=== PATIENT | female | born 1965 | race Caucasian/White ===

== ENCOUNTER → 2023-11-06 14:42 | Outpatient (CLI) | payer OTHER, SELFPAY ==
--- NOTE | 2023-11-06 14:53 | EKG_ITS ---
[id number] [address] Test Date: 2023-11-06 Pat Name: Flores Reyes Department: [facility] Room: Gender: Female Outpatient Psychiatrist: WENCESLAO : 1965 Requested By: Order Number: [id number] Reading MD: Shaheen Ann MD Measurements Intervals [place] Rate: 58 P: 38 NE: 128 QRS: 31 QRSD: 98 T: 33 QT: 446 QTc: 437 Interpretive Statements Sinus bradycardia Nonspecific ST abnormality Electronically Signed On 11-06-2023 17:02:46 PDT by Shaheen Ann MD
[2023-11-06 16:24] LABS: Add Manual Diff / Slide Review NO; Basophils Absolute Auto 100 /uL (0-100); Basophils Percent Auto 0.9 % (0-2); Eosinophils Absolute Auto 100 /uL (0-450); Eosinophils Percent Auto 1.9 % (2-4); Hematocrit 40.4 % (36-46); Hemoglobin 13.9 g/dL (12.0-16.0); Lymphocytes Absolute Auto 2300 /uL (1100-4500); Lymphocytes Percent Auto 33.7 % (25-40); Mean Corpuscular HGB Conc 34.3 % (30-36); Mean Corpuscular Hemoglobin 31.1 PG (26-34); Mean Corpuscular Volume 90.5 fL (80-100); Monocytes Absolute Auto 400 /uL (0-900); Monocytes Percent Auto 5.7 % (3-14); Neutrophils Absolute Auto 3900 /uL (1500-7000); Neutrophils Percent Auto 57.8 % (50-75); Platelet Count 325 X10^3/uL (150-400); Red Blood Cell Count 4.46 X10^6/uL (4.0-5.2); Red Cell Distribution Width 12.6 % (11.6-14.8); White Blood Cell Count 6.8 X10^3/uL (4.5-11.0)
[2023-11-06 16:41] LABS: Albumin 4.2 g/dL (3.5-5.0); Blood Urea Nitrogen 11 mg/dL (7-17); Calcium 9.3 mg/dL (8.4-10.2); Carbon Dioxide 28 mmol/L (22-32); Chloride 100 mmol/L (98-107); Estimated Glomerular Filt Rate > 60 mL/min (>60); Glucose 96 mg/dL (70-100); HEMOLYSIS < 15 (0-50); Potassium 3.4 mmol/L (3.4-5.1); Sodium 136 mmol/L (137-145)
[2023-11-06 16:48] LABS: Prealbumin 27.9 mg/dL (17.6-36.0)
[2023-11-06 16:52] LABS: Hemoglobin A1C% w Est Avg Glu 5.1 % (4.0-6.0)
== END ==
LOC: RESP 14:51
PROVIDERS: PCP Family Medicine; Referring Provider Orthopaedic Surgery Adult Reconstructive Orthopaedic Surgery; Visit Provider Orthopaedic Surgery Adult Reconstructive Orthopaedic Surgery
DX: Z01.818 Encounter for other preprocedural examination (principal); R77.0 Abnormality of albumin; E55.9 Vitamin D deficiency, unspecified; Z01.812 Encounter for preprocedural laboratory examination; R73.9 Hyperglycemia, unspecified
CPT/HCPCS: 36415; 80048; 82040; 82306; 83036; 84134; 85025; 93005

== ENCOUNTER 2023-12-19 12:08 | Day surgery (SDC) | payer OTHER, SELFPAY ==
[2023-12-18 13:57] VITALS: BMI 22.7
[2023-12-19] VITALS (11 sets, daily range): BP systolic 89–149; BP diastolic 38–90; PULSE 60–79; RESP 12–18; TEMP 36.2–37.1; O2SAT 95–100; BMI 22.8
--- NOTE | 2023-12-19 06:00 | DI.RAD.S_ITS ---
PROCEDURE: XR HIP W PEL IF DONE RT 2V INDICATIONS: lizbeth TECHNIQUE: Spot fluoroscopic intraoperative images of the pelvis and right hip. COMPARISON: [facility] [place], CR, XR PELVIS WITH LATERAL HIP RIGHT, 10/26/2023, 11:53. FINDINGS: Fluoroscopic intraoperative images demonstrate changes related to right total hip arthroplasty with hardware components in expected positions. Left hip arthroplasty is partially imaged. IMPRESSION: Expected intraoperative appearance of a right hip arthroplasty. Approved by: Anhtony Sanchez M.D. on 12/19/2023 at 17:31
[2023-12-19] MEDS: LACTATED RINGERS 1,000 ML 42 ML IV (12:27)
[2023-12-19] MEDS: CELECOXIB 200 MG CAPSULE 400 MG PO (12:29)
[2023-12-19] MEDS: ACETAMINOPHEN 325 MG TABLET 975 MG PO (12:29)
--- NOTE | 2023-12-19 13:29 | PM.PREOP ---
Pre-operative Note Interval Note History & Physical reviewed/Exam performed by Physician: Yes Changes to H&P: No
--- NOTE | 2023-12-19 15:02 | SUR.OPER ---
Supine on padded [place] table with bilateral legs secured in padded positioning boots and suspended in positioning spars, operative leg in traction per surgeon. Head on one pillow. Arms secured on padded armboard <90 degrees abduction. Padded perineal post in place per surgeon.
[2023-12-19] MEDS: CEFAZOLIN 2 GM/100 ML PREMIX 100 ML IV ×2 (16:01→23:52)
[2023-12-19] MEDS: ROPIVACAINE/EPI/CLONIDINE/KET 50 ML SYRINGE INJ (16:28)
[2023-12-19] MEDS: TRANEXAMIC ACID 1,000 MG VIAL 2000 MG INJ ×2 (16:28→17:20)
--- NOTE | 2023-12-19 17:30 | P.OP_ITS ---
Operative Date/Time/Diagnoses Date of procedure: 12/19/23 Pre-op diagnosis: Right hip osteoarthritis Post-op diagnosis: same Procedure & Clinicians Procedure: Right total hip arthroplasty Same procedure as scheduled: Yes Surgeon: Blayne Gann Environmental Management Specialist: Rosalia Quiñonez Anesthesia Type: General and Local Operative Notes Estimated Blood Loss (mL): 400 Procedure in detail: Right Uncemented Direct Anterior Depuy Total Hip Arthroplasty: Implants: * [place] Gription size 54 cup? * Actis femoral stem size 7 standard offset? * 36 mm +5 ceramic femoral head? Procedure Summary: This 58-year-old female patient had previously undergone a left total hip arthroplasty performed by 1 of the surgeons in [place]. During today's procedure I used similar sized implants, using a 54 cup which was the same as the previous side, a 7 standard offset stem which is 1 size larger than the previous side, and a +5 head which is also 1 size larger than the previous side. I used the +5 head because there was instability when externally rotating past 100? with a +1.5 head. There was stability past 115? with a +5 head Procedure in Detail: This patient was seen preoperatively and evaluated for hip pain which was refractory to numerous nonoperative treatment modalities. Their hip pain correlated with radiographic changes demonstrating significant degeneration in the hip joint. The risks and benefits of continued nonoperative management versus operative management were discussed at length and all of the patient?s questions were answered. Additional educational materials providing further details beyond our discussion in clinic were provided via a publicly available patient education video which included the incidence of medical complications associated with total hip arthroplasty, reasons for revision following total hip arthroplasty, and patient satisfaction rates following total hip arthroplasty. That video can be accessed at [email or web address] . With this understanding of the risks inherent to the procedure, the patient elected to move forward with operative management. Following preoperative optimization, the patient was scheduled for surgery. The patient was met in the preoperative holding area the day of the procedure and all questions were answered. The patient?s nares were swabbed with betadine in order to decolonize them from MRSA. Informed consent was signed and the right limb was marked with indelible ink.? The patient was brought back to the operating room where anesthesia was induced. The patient was transferred to the [place] table and all bony prominences were padded. The operative site was prepped and draped in the usual sterile fashion. Prior to incision, tranexamic acid and cefazolin were administered. Operative templating images were displayed demonstrating the anticipated implant sizes and correct operative extremity. A timeout procedure was performed verifying the patient?s identity, medical comorbidities, allergies, relevant medications, anesthesia type and the surgical plan. All present were in agreement. The assistance of a physician certified nursing assistant instructor was required for positioning, room setup, soft tissue retraction and wound closure. Without this assistance, the procedure would have been significantly more challenging and time consuming.?? A direct anterior approach to the hip was utilized. This was performed with a longitudinal incision through a Heuter interval. The incision was planned 2 cm distal and 2 cm lateral to the ASIS extending towards the lateral patella, in line with the muscle body of the TFL. Following incision, the subcutaneous tissue was dissected while taking care to avoid injury to the lateral femoral cutaneous nerve. The fascia overlying the TFL was identified by dissecting off the overlying fat and identifying perforating vessels to the TFL. The TFL fascia was incised and dissected away from the medial border of the TFL. A cobra retractor was placed over the superior femoral neck between the abductors and the hip capsule and used to reflect the TFL laterally. A [place] self-retainer was then placed in the distal aspect of the wound between the TFL and the rectus femoris. This was tensioned to open up the direct anterior interval and the lateral circumflex vessels were identified and coagulated using electrocautery. The floor of the TFL fascia was incised, exposing the pericapsular fat overlying the hip capsule. A second cobra retractor was placed on the inferior femoral neck. A double-bent soft tissue retractor was placed on the anterior wall of the acetabulum and used to tension the reflected head of rectus femoris, which was then released in order to limit soft tissue tension. A capsulotomy was made in the midline of the anterior hip capsule in line with the femoral neck ending at the vastus tubercle. The double-bent retractor was removed in order to limit the amount of time that a soft tissue retractor remained on the anterior wall and protect the femoral nerve. Tag stitches were placed in the superior and inferior leaflets of the hip capsule. An Bobby soft tissue retractor was introduced over the tag stitches and tensioned in the interval between the rectus femoris and the TFL in order to retract and protect those muscles. The cobra retractors were replaced intracapsularly, with one over the superior neck in the pocket created by the base of the greater trochanter and the other on the femoral head. The capsulotomy was extended laterally to the base of the greater trochanter and medially to the lesser trochanter. This required externally rotating the hip. Once the lesser trochanter had been identified, a neck cut was planned according to measurements from preoperative templating. A ruler was cut at the length measured between the superior aspect of the lesser trochanter and the collar of the prosthesis. This line was extended towards the inferior aspect of the lateral cobra retractor to plan a cut which would leave minimal residual femoral neck laterally. The neck was cut at 60 degrees of external rotation along that line. A second cut was performed to remove a large napkin ring and facilitate head extraction. The napkin ring cut and femoral head were removed.?? A broad anterior wall retractor was placed between the labrum and the anterior capsule so that the anterior capsule would prevent capturing and pinching the femoral nerve anteriorly. An additional retractor was placed on the posterior wall. External rotation and traction were applied through the [place] table so that the cut surface of the femoral neck would not restrict access to the acetabulum. The labrum was excised sharply and the pulvinar was excised with electrocautery to limit bleeding from branches of the obturator artery. Acetabular reamers were selected based on preoperative templating and measurements of the excised femoral head. These were introduced into the acetabulum. Fluoroscopy was utilized to replicate a standing AP pelvis radiograph by centering over the pelvis, rotating until there was appropriate symmetry between the obturator foramen, and introducing caudal tilt to match the position of the pubic symphysis relative to the sacrococcygeal junction according to the patient?s anatomy. Fluoroscopy was utilized to ensure appropriate reaming depth. Once sati sfied with the reaming depth corresponding to the preoperative template and the pinch fit between the columns, an appropriate sized acetabular cup was selected which would provide 1 mm of press-fit. This cup was introduced and manipulated until appropriate abduction and anteversion angles were obtained with careful attention to appropriate abduction and anteversion angles as evaluated by the position of the cup relative to the anterior and posterior anderson of the acetabulum and the AP fluoroscopy which recreated the patient?s standing radiograph. The cup was impacted into place. Peripheral osteophytes were removed. The acetabular liner was then placed with care to ensure locking of the locking mechanism.? Attention was then turned to the femur. All retractors were removed, traction was released, a retractor was placed in the interval between the hip capsule and the gluteus minimus, and the hip was externally rotated to 90 degrees. Traction was applied through the [place] table to tension the lateral capsule and this was released using electrocautery. Traction was released and a [place] hook was placed posteriorly around the proximal femur at the level of the vastus ridge. The table height was lowered in order to restrict the tension on the anterior structures during hip hyperextension to limit the risk of femoral nerve palsy. With traction off and the hip at 90 degrees of external rotation, the hip was hyperextended and adducted while manually elevating the femur away from the acetabulum with the [place] hook to ensure it would not be caught behind the greater trochanter. An asymmetric retractor was placed over the calcar and a broad double-pronged retractor was placed over the greater trochanter. The tag stitch capturing the lateral leaflet of the capsule was moved to the medial side, leaving the conjoined and piriformis tendons isolated in the face of the greater trochanter. The hip was externally rotated and elevated. A release of the conjoined tendon was not necessary in order to obtain adequate exposure for broaching. The canal was opened with an opening broach and a rasp was used to remove cancellous bone. A rongeur was used to remove the residual lateral bone at the base of the greater trochanter to avoid placing the stem in varus. The femur was then broached to the appropriate sized stem yielding good rotational fit and fill of the canal as well as appropriate version of the stem trial. Neck and head trials were placed, all retractors were removed and the hip was returned to neutral abduction and extension. I then reduced the hip. Initial trialing was performed with a size 7 broach, a standard offset neck and a +1.5 head. I initially manually externally rotated the hip and found that it dislocated around 90? so I upsized to a +5 head. At that point in time it was stable to 115?.. I then locked the hip in 45 degrees of external rotation and dropped it to the floor with traction off which demonstrated no instability. An AP pelvis fluoroscopic image matching the preoperative standing radiograph with both lesser trochanters visible and both hips in 40 degrees of external rotation demonstrated appropriate leg lengths and offset. AP and lateral hip fluoroscopic images were obtained to evaluate the broach size which demonstrated good canal fill. The hip was dislocated and I returned to the broaching position. Based on my evaluation during initial trialing I planned to place these definitive implants. The definitive stem was placed and the trunnion was cleaned and dried. I placed a ceramic head onto the trunnion and impacted it into place on the Holman taper.?? All retractors were removed and the hip was reduced. A dilute mixture of betadine and peroxide was used to bathe the soft tissues during final fluoroscopic assessment. Appropriate component positioning was confirmed on an AP pelvis radiograph with the operative and nonoperative legs in 40 degrees of external rotation, evaluating leg length and offset. Appropriate stem fill was evaluated on AP and lateral hip radiographs. No fractures were identified on these radiographs. There was no hip instability with 115? of external rotation as well as a 45 degree drop test. The hip was copiously irrigated with pulse lavage. The capsule was closed with absorbable interrupted suture. The TFL fascia was closed with barbed suture while carefully protecting the lateral femoral cutaneous nerve from entrapment. A mixture of Ropivacaine, Epinephrine, Clonidine and Toradol was infiltrated throughout the soft tissues. The skin was closed with 2-0 and 3-0 sutures. Surgical glue was applied and a soft dressing was placed.??The sponge, instrument and needle counts were reported as being correct at the end of the case.??No obvious complications occurred. The patient was transferred from the [facility] back to a stretcher. The patient emerged from anesthesia without difficulty and was taken to the PACU in a stable condition.? Plan for aftercare: * Anterior hip precautions * Weightbearing as tolerated * Aspirin 81 twice per day for DVT prophylaxis * Anticipate discharge home tomorrow * Change into normal clothes upon arrival on the hospital floor * Mobilize in the halls as much as is logistically possible. If physical therapy is unavailable for mobilization, then patient should mobilize with nursing staff * Multimodal pain regimen with no IV opioids ordered * Apply ice machine to operative hip. Ensure that sufficient ice is in the chamber for the pad to remain cold * Follow up at [facility] in 2 weeks * Detailed postoperative instructions available at [email or web address]
[2023-12-19] MEDS: ONDANSETRON 4 MG/2 ML INJ IV ×2 (17:54→18:07)
--- NOTE | 2023-12-19 18:00 | DI.RAD.S_ITS ---
PROCEDURE: XR HIP W PEL IF DONE RT 2V INDICATIONS: S TECHNIQUE: AP pelvis and lateral view of the hip acquired. COMPARISON: [facility] [place], CR, XR PELVIS WITH LATERAL HIP RIGHT, 10/26/2023, 11:53. [facility], CR, XR HIP W PEL IF DONE RT 2V, 12/19/2023, 16:43. FINDINGS: Bones: Patient is status post right hip arthroplasty, with hardware components in expected positions. The hip joint appears congruent. The visualized bony structures appear intact. Stable appearance of the left hip arthroplasty. Soft tissues: Overlying postoperative changes are noted. No suspicious soft tissue densities. IMPRESSION: Expected post-operative appearance of a right hip arthroplasty. Approved by: Anthony Sanchez M.D. on 12/19/2023 at 18:38
[2023-12-19] MEDS: hydrOXYzine 50 MG/ML INJ 25 MG IM (18:07)
[2023-12-19] MEDS: METOCLOPRAMIDE 10 MG/2 ML INJ IV (18:08)
[2023-12-19] MEDS: fentaNYL 100 MCG/2 ML INJ IV ×2 (18:08→18:15)
[2023-12-19] MEDS: OXYCODONE IR 5 MG TABLET PO ×2 (18:23→21:45)
--- NOTE | 2023-12-19 18:45 | PC.NURSE ---
Patient brought up from PACU to room 217, oriented to room and call light. Patient groggy but arousable and answering questions. States her right buttocks and hip feels weird and crampy. No transfer orders noted upon arrival, brake lining driller reaching out to Dr. Gann to finalize orders. VSS, 95% on RA. Call light placed within reach, bedalarm activated for safety.
[2023-12-19] MEDS: LACTATED RINGERS 1,000 ML 100 ML IV (19:36)
[2023-12-19] MEDS: ASPIRIN EC 81 MG TABLET PO (21:37)
[2023-12-19] MEDS: GABAPENTIN 300 MG CAPSULE 900 MG PO (21:37)
[2023-12-19] MEDS: DOCUSATE 100 MG CAPSULE PO (21:37)
[2023-12-19] MEDS: ACETAMINOPHEN 325 MG TABLET 650 MG PO (21:39)
[2023-12-20 05:19] VITALS: BP 128/74; PULSE 75; RESP 18; TEMP 37; O2SAT 95
[2023-12-20 05:31] LABS: Hematocrit 28.8 % (36-46); Hemoglobin 9.7 g/dL (12.0-16.0)
--- NOTE | 2023-12-20 06:46 | P.DS_ITS ---
History of Present Illness History of Present Illness Date Patient Seen: 12/20/23 Time Patient Seen: 06:46 Chief complaint: OPB Narrative: Operative Date/Time/Diagnoses Date of procedure: 12/19/23 Pre-op diagnosis: Right hip osteoarthritis Post-op diagnosis: same Procedure & Clinicians Procedure: Right total hip arthroplasty Same procedure as scheduled: Yes Surgeon: Blayne Gann Oenologist: Rosalia Quiñonez Anesthesia Type: General and Local Operative Notes Estimated Blood Loss (mL): 400 Procedure in detail: Right Uncemented Direct Anterior Depuy Total Hip Arthroplasty: Implants: * [place] Gription size 54 cup? * Actis femoral stem size 7 standard offset? * 36 mm +5 ceramic femoral head? Discharge Providers Provider Discharge Date: 12/20/23 Primary care physician: Haseeb Yip MD Consults: 12/19/23 06:00 Consult to Anesthesiology Routine Comment: Consulting Provider: Anesthesiologist Reason for consultation: Regional block for post operative pain control 12/19/23 19:07 Consult to Discharge Planning Routine Comment: Consult to Occupational Therapy Evaluate & Treat Comment: Physician Instructions: Evaluate and treat Consult to Physical Therapy Evaluate & Treat Comment: Physician Instructions: post op TEZ protocol Discharge provider: Rosalia Quiñonez PA-C Summary Hospital Course Discharge Diagnosis: Right hip osteoarthritis, s/p right total hip arthroplasty Hospital Course: Ms Reyes's hospital course was unremarkable. ON the morning of POD# 1, she was feeling well and wanted to go home. She was eating and voiding without difficulty and her pain was well-controlled with oral medication. She had not been OOB yet. Exam Vital Signs (past 8 hours): - 12/20/23 05:19 Temperature 98.6 F Pulse Rate 75 Respiratory Rate 18 Blood Pressure 128/74 Pulse Oximetry 95 Oxygen Flow Rate 0 Oxygen Delivery Method Room Air Oxygen Flow Rate 0 Narrative Exam Narrative: 4/5 hip flexors, quadriceps, hamstrings; 5/5 PF, DF, EHL on right. Sensation to light touch intact throughout RLE. Calf soft and compressible. Aquacel dressing CDI. Objective Labs 12/20/23 04:29 Labs: Laboratory Results - last 24 hr 12/20/23 04:29 Hgb 9.7 L Hct 28.8 L PFSH Medical History (Updated 12/18/23 @ 13:55 by Franchesca Morales RN) Depression Anemia ADD (attention deficit disorder) Arthritis Osteoporosis Headache, migraine DJD (degenerative joint disease) Surgical History (Updated 12/18/23 @ 13:55 by Franchesca Morales RN) Delivery by section (2003) H/O nasal septoplasty (10/28/17) Status post Mohs surgery History of hysteroscopy (03/30/17) History of total left hip replacement (2020) History of appendectomy Social History household members: children Smoking Status: Former smoker alcohol intake: current Discharge Assessment & Plan Assessment and Plan Assessment: Right hip osteoarthritis, s/p right total hip arthroplasty Plan of Treatment: Discharge home after PT, multimodal pain control, ASA 81mg BID for VTE prophylaxis, f/u in office as scheduled. Discharge Plan Discharge Plan Patient Disposition: Home Provider Discharge Comment: Pt given rxs for postop meds from office. Discharge orders & Medications Discharge Orders: Discharge (Order); Ordered 12/20/23 Ordered By: Rosalia Quiñonez Prescriptions: Continued gabapentin 300 mg capsule 900 mg PO ONCE PM dextroamphetamine-amphetamine 5 mg tablet 1 tab PO DAILY PRN (Reason: ADD) dextroamphetamine-amphetamine 5 mg capsule,extended release 24hr 1 cap PO QAM celecoxib 200 mg capsule 200 mg PO DAILY aspirin 81 mg tablet,delayed release (DR/EC) 81 mg PO BID oxycodone 5 mg tablet 5 mg PO Q4-6H PRN (Reason: moderate pain) Discontinued meloxicam 15 mg tablet 15 mg PO DAILY Follow up/Referrals: Haseeb Yip MD [Primary Care Provider] - Blayne Gann MD [Physician] - 01/01/24 9:30 am (Follow up w/ Akiko Heller PA-C, at [facility].) Diet/Activity/Treatments Diet: Diet as Tolerated Activity: Weightbearing as tolerated. Anterior hip precautions. Skin/Wound/Dressing Care Report to your healthcare provider any signs of infection, such as:: chills, fever, night sweats, unusual drainage and unusual redness Dressing: May shower. Keep dressing in place until follow up in office. No bathing or otherwise soaking incision. Call the office if the dressing become saturated inside. Visit Report/Discharge Packet Instructions: DI for Hip Replacement, DI for Prescription Opioid Use Stand Alone Forms: Patient Portal/API, Surgery Discharge Discharge Data Primary Care Provider: Haseeb Yip Attending Provider: Blayne Gann
[2023-12-20 08:14] VITALS: BP 97/74; PULSE 65; RESP 15; TEMP 36.6; O2SAT 96
[2023-12-20] MEDS: ASPIRIN EC 81 MG TABLET PO ×2 (09:01→20:51)
[2023-12-20] MEDS: ACETAMINOPHEN 325 MG TABLET 650 MG PO ×3 (09:01→21:00)
[2023-12-20] MEDS: DOCUSATE 100 MG CAPSULE PO ×2 (09:01→20:51)
[2023-12-20] MEDS: CEFAZOLIN 2 GM/100 ML PREMIX 100 ML IV (09:01)
[2023-12-20] MEDS: CELECOXIB 200 MG CAPSULE PO (09:01)
[2023-12-20] MEDS: OXYCODONE IR 5 MG TABLET PO (09:02)
[2023-12-20 09:31] VITALS: O2SAT 100
--- NOTE | 2023-12-20 10:10 | OT.IP.EVAL ---
Current Diagnoses Unilateral primary osteoarthritis, right hip (12/19/23) Surgery Performed Operation Date: 12/19/23 13:45 Actual Procedures p Total Hip Arthroplasty/Anterior Approach(Right) - Blayne Gann MD Past Medical History (Last Updated 12/18/23 @ 13:55 by Franchesca Morales, NESSA) ADD (attention deficit disorder) Anemia Arthritis Depression DJD (degenerative joint disease) Headache, migraine Osteoporosis Surgical History (Last Updated 12/18/23 @ 13:55 by Franchesca Morales RN) Delivery by section (2003) H/O nasal septoplasty (10/28/17) History of appendectomy History of hysteroscopy (03/30/17) History of total left hip replacement (2020) Status post Mohs surgery Occupational Therapy Inpatient Evaluation/Re-Eval M1 PT/OT-IP Prior Functional Status Start: 12/20/23 10:15 Freq: NEEDED Status: Active Protocol: Document 12/20/23 10:15 [facility] (Rec: 12/20/23 10:27 [facility] [id number]) Medical Review Prior Functional Status Communication I Mobility and Gait Pt states had pain all the time and used a SPC at times. Activities of Daily Living and IADL's Pt had pain with all ADL and IADL needs. Social History Household Members children Living Arrangements House Number of Floors (Floors) One Floor Number of Stairs To Enter/Railing? 2 steps with wide rails. Home Environment Walk in Shower Home Equipment Front Wheel Walker,Straight Cane,Raised Toilet Seat w/ Armrests,Shower Seat with Backrest,Hand Held Shower,Leg Concrete Finisher,Long Handled Sponge, Miniature Train Driver,Sock Aid,Grab Bars next to tub Additional Social History Comment Pt has tub only. Pt's son to stay and assist her. M2 OT-IP Current Condition Start: 12/20/23 10:15 Freq: Status: Active Protocol: Document 12/20/23 10:15 [facility] (Rec: 12/20/23 10:27 [facility] [id number]) Occupational Therapy Current Condition Current Condition Evaluation Date 12/20/23 Treatment Diagnosis S/P R TEZ Diagnosis Onset Date 12/19/23 Post Operative Precautions Anterior Hip Precautions No excessive Hip Extension,No excessive Hip External Rotation M3 OT- IP Subjective and Pain Start: 12/20/23 10:15 Freq: Status: Active Protocol: Document 12/20/23 10:15 [facility] (Rec: 12/20/23 10:27 [facility] [id number]) OT- Subjective Occupational Therapy Visit Type Type Initial Evaluation Visit Start Time 09:00 Visit Stop Time 10:10 Occupational Therapy Visit Comments Patient Comments Pt agreed to get up to use the BSC. Patient/Caregiver Goals To go home. OT Pain Assessment Pain When Pain Assessed At Rest Pain Present Pain Present Pain Reported Location Right Hip Intensity 7 Scale Used Numeric (0 - 10) M4 OT- IP ADL's Start: 12/20/23 10:15 Freq: Status: Active Protocol: Document 12/20/23 10:15 [facility] (Rec: 12/20/23 10:27 [facility] [id number]) OT ZUK-Yxdd-Ygpylxr General Evaluation Self-Feeding Ability Independent OT ADL-Grooming Comments OT Grooming Comments Not performed. OT ADL-Oral Care Comments Oral Care Comments Not performed. OT ADL-Dressing General Eval Lower Body Dressing Ability Moderate Assistance Areas Needing Assistance Underpants/Brief,Socks Comments OT Dressing Comments Pt able to practice use of workforce management manager for toileting needs. Educated pt not to do excessive movements for her anterior hip precautions. OT ADL-Toileting General Evaluation Toileting Ability Minimal Assistance Areas Needing Assistance Manage Clothing Comments OT Toileting Comments JESSENIA for brief management needs. OT ADL-Bathing Comments OT Bathing Comments Pt will need assist at home. Educated on bandage/dressing care for showering needs. M5 OT- IP IADL's Start: 12/20/23 10:15 Freq: Status: Active Protocol: Document 12/20/23 10:15 [facility] (Rec: 12/20/23 10:27 [facility] [id number]) OT-Instrumental Activities of Daily Living Home Safety Awareness Home Safety Comments Pt very tired and groggy at this time and that he son to be able to assist her at home. M6 OT- IP Functional Cognition Start: 12/20/23 10:15 Freq: Status: Active Protocol: Document 12/20/23 10:15 [facility] (Rec: 12/20/23 10:27 [facility] [id number]) Cognitive Factors Limiting Selfcare Function Cognitive Ability Level of Alertness Alert,Drowsy Patient Orientation Name,Age,Birthday,Month,Date, Year,Day of Week,Place, Situation Attention Span Ability Capable of Focused Attention, Capable of Sustained Attention Ability to Follow Commands Able to Follow One Step Commands Cognitive Comments Cognitive Assessment Comments Pt able to follow commands for ADL and mobility needs. Pt needing increased time to process and initiate movements as very groggy. OT- Vision and Hearing OT- Hearing Assessment OT- Hearing Assessment WFL OT- Vision Assessment Visual Acuity Glasses All The Time Visual Attentiveness WFL Occular Pursuits WFL M7 OT- IP Mobility and Balance Start: 12/20/23 10:15 Freq: Status: Active Protocol: Document 12/20/23 10:15 [facility] (Rec: 12/20/23 10:27 [facility] [id number]) OT- Bed Mobility Assessment Supine to Sit Supine to Sit Assist Moderate Assistance Sit to Supine Sit to Supine Assist Total Assistance OT-Transfer Assessment Sit to and From Stand Sit to and from Stand Minimal Assistance Transfers Transfer Ability Minimal Assistance Technique Transfer Destination Bed,Chair Transfer Technique Stand Step Pivot Devices Transfer Assistive Devices Gait Belt,Front Wheeled Walker Comments Mobility Comments MODA to assist with her RLE management needs to get to the edge of the bed. Pt JESSENIA to stand and vc to tighten her RLE. ONce on her feet CGA-JESSENIA for transfer with FWW to the BSC and then to the recliner. Pt drop in BP and having to be hoyered back to bed. BP supine 98/50 sitting 100/55, 112/53, and after use of BSC dropped to 86/44, while in the recliner with legs up 93/50 and eventually after time passed drops to 82/41 and having to call in nursing and use of jaylen back to bed. Left pt with nursing. OT- Balance Assessment Sitting Balance and Reactions Static Sitting Balance Ability Good Dynamic Sitting Balance Ability Good Standing Balance and Reactions Static Standing Balance Ability Fair Dynamic Standing Balance Ability Fair M8 OT- IP Objective Assessments Start: 12/20/23 10:15 Freq: Status: Active Protocol: Document 12/20/23 10:15 [facility] (Rec: 12/20/23 10:27 [facility] [id number]) OT Gross Range of Motion Upper Extremity Range of Motion Assessment Within Functional Limits OT Strength Upper Extremity Strength Assessment Within Functional Limits M9 OT- IP Assessment and Plan Start: 12/20/23 10:15 Freq: Status: Active Protocol: Document 12/20/23 10:15 [facility] (Rec: 12/20/23 10:27 [facility] [id number]) OT Summary Assessment and Plan Potential Rehabilitation Potential Excellent Analytic Complexity at Evaluation Low Summary OT Impairments Pain,Strength,Balance, Functional Mobility,Dressing, Toileting,Bathing,Toilet Transfers,Shower Transfers, Activity Tolerance Progress Towards Goals Slow Progress due to Pain,Slow Progress due to Medical Issues Assessment Summary Pt low complexity and main barriers are pain, drop in BP and woozy. Pt able to move with one person assist but limited due to drop in BP. Pt to go home with her son to assist and attend outpt PT when medically stable. Goals Self-Feeding Goal Independent Grooming Goal Independent Dressing Goal Independent,Miniature Train Driver,Sock Aid Toileting Goal Independent Bathing Goal Standby Assistance Toilet Transfer Goal Independent Shower Transfer Goal Contact Guard Assistance Days to Meet Goals 7 Frequency of Treatment Other frequency 5x/week Treatment Plan OT Treatment Plan ADL Training,Functional Mobility,Patient/Family Education,Discharge Planning Other Treatment Recommendations and Next standing ADL's Treatment Focus Discharge Recommendations OT Discharge Recommendations Home with Assistance, Outpatient PT Transportation Needs at Discharge Private Vehicle
--- NOTE | 2023-12-20 11:35 | CM.DANOTE ---
Initial DCP Assessment Visit Note Reviewed EMR and team rounds for status updates. Met with pt at bedside to introduce self and role, pt was found to be resting quietly, alert/oriented, but tearful. She had just had a syncopal episode while working with OT, but was feeling better after laying down. Pt lives modified independently with the use of a cane in her own home with her son in [place]. She has a d/c order, and will plan to d/c home later today, her son will transport her. Plan is OP PT after she meets with Ortho for her postoperative f/u appt. She declines any needs at this time from CM. Payor: Linda REEDER Attending: Dr. Gann Pt is a 58 year-old F post-op day 1 from a R-hip total arthroplasty. She has a hx of worsening R-hip pain that consumes her entire hip area, has difficulty walking due to the pain, and finds that she is unable to complete her ADL's without significant effort. Conservative measures tried have included PT, massage, stretching, tylenol, and had an injection in July which only lasted about a week. DCP will continue to monitor for any further evolving needs prior to her d/c. 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 No Advance Directives on File No History Provided By Patient,Medical Record Has Patient been admitted in last 30 No days? Prior Living Arrangements House Household Members children Comment son Type of transporation used prior to Drives own vehicle admit Independent with ADL's No: modified independent with a cane Is patient alert and oriented? Yes Caregiver for Another No Community Services used prior to Physical Therapy admission: DME Already Rented / Owned Elevated Toilet Seat,FWW / Walker,Cane Patient/Family Preference OP PT Therapy Barriers to Discharge No Discharge Plan Home Transportation Arrangement son Referrals Initiated None needed Whiteboard Updated in Patient Room with Yes name and ext. # of Sand Screener Operator Review Status In Process Please Provide Date Initial DC 12/20/23 Assessment Was Performed Pre-Anesthesia Assessment Start: 12/18/23 13:56 Freq: Status: Active Protocol: Document 12/18/23 13:57 LB (Rec: 12/18/23 14:26 LB [id number]) Pre-Anesthesia Assessment PAC Comment 12/18/23 Phone assessment. Patient Information Reviewed Via Phone Assessment Assessment Completed With Patient Diagnostic Results BMP/CMP,CBC,EKG Comment 11/06/23 at . Primary Care Provider Marion Bruce Medical Clearance Received Yes Seen Specialist in Last 12 Months Yes Specialist Seen Orthopedist Primary Language Fijian Preferred Language Fijian Trim Operator Required No Height 170.18 cm Weight 65.771 kg Body Mass Index (BMI) 22.7 Hearing Ability Normal Visual Assist Glasses Dentition Type Teeth, Natural Present Barriers to Learning None Other Aids No Hx Anesthesia Reactions Yes: Slow to waken. Hx Malignant Hyperthermia No Hx Blood Transfusions No Anesthesia Review Requested No Organ Teacher No alcohol intake current alcohol intake frequency holidays/special occasions only Smoking Status Former smoker how long ago did patient quit smoking Quit 20 years ago. Substance Use Type does not use Pain Present Reassessed Comment Right hip. Musculoskeletal Symptoms Difficulty Walking,Muscle Weakness,Radiating Pain into Limb History of Falling (Recent or History of Yes ) Comment I'm getting clumsy with this pain Patient is completely paralyzed or No completely immobile Comment Will bring walker. Is patient on oxygen? 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 Devices Have you had any close contact with No someone diagnosed with COVID-19? Are you experiencing any of these No symptoms symptoms? Comment Denies covid last 2 months. Lives With children Current Living Arrangements House Number of Floors (Floors) One Floor Number of Stairs To Enter/Railing? 2 stairs with railing. Support System Child/Children Does the Patient Have Assistance After Yes Surgery Patient Discharge Plan Description Return Home Comment Son will be home from college to help pt. Additional comment Pt prefers to spend the night. Feels Safe in Current Environment Yes Do you have a plan to hurt yourself or No Plan others? Emergency Contact Name Madisyn Luther - daughter Emergency Contact Advance Directives? No Advance Directives on File No Requested Patient Bring Advanced Yes Directives DOS PAC Instructions Assistance for 24 hours post- op,Durable medical equipment, Medications to take/avoid, Nasal antibiotic,No ETOH/ petroleum product on skin DOS, NPO,Post-op transportation,Pre -surgical wash,Sensory aids, Sturdy shoes/comfortable clothes,Do not bring valuables and remove jewelry
--- NOTE | 2023-12-20 12:31 | PT-IP ANOTE ---
PT eval received and EMR reviewed. per OT, pt with episode of orthostatic hypotension this morning. checked with nurse and pt x 2. nurse stated that she is trying to contact ortho MD for bolus IV to help with BP. pt stated that she does not think she can do PT this morning. PT eval hold this morning. BP continues to be low. will f/u this afternoon.
[2023-12-20] MEDS: SODIUM CHLORIDE 0.9% 500 ML 1000 ML IV (13:09)
[2023-12-20 14:55] VITALS: BP 117/45; PULSE 73; RESP 15; TEMP 36.1; O2SAT 98
--- NOTE | 2023-12-20 15:20 | PT.IIE ---
Current Diagnoses Unilateral primary osteoarthritis, right hip (12/19/23) Surgery Performed Operation Date: 12/19/23 13:45 Actual Procedures p Total Hip Arthroplasty/Anterior Approach(Right) - Blayne Gann MD Surgical History (Last Updated 12/18/23 @ 13:55 by Franchesca Morales, RN) Delivery by section (2003) H/O nasal septoplasty (10/28/17) History of appendectomy History of hysteroscopy (03/30/17) History of total left hip replacement (2020) Status post Mohs surgery Medical History (Last Updated 12/18/23 @ 13:55 by Franchesca Morales, NESSA) ADD (attention deficit disorder) Anemia Arthritis Depression DJD (degenerative joint disease) Headache, migraine Osteoporosis Physical Therapy Inpatient Evaluation/Re-Eval M1 PT/OT-IP Prior Functional Status Start: 12/20/23 12:24 Freq: NEEDED Status: Active Protocol: Document 12/20/23 15:20 AB (Rec: 12/20/23 16:43 AB [id number]) Medical Review Prior Functional Status Medical History Reviewed Yes Communication able to make needs known Mobility and Gait pt stated that she was modified independent with all mobilities and ambulation without AD Activities of Daily Living and IADL's per OT note: Pt had pain with all ADL and IADL needs. Social History Household Members none Living Arrangements House Number of Floors (Floors) One Floor Number of Stairs To Enter/Railing? 2 steps wide rails to enter and can only hold on to one rail at a time Home Environment Standard Height Toilet,Tub/ Shower Home Equipment Front Wheel Walker,Straight Cane,Raised Toilet Seat w/ Armrests,Shower Seat with Backrest,Hand Held Shower,Leg Doctor Of Medicine,Grab Bars In Shower Additional Social History Comment pt's son will be staying with her for ~ 2 weeks to assist her; stated that she has friends that can also assist if needed M2 PT-IP Current Condition Start: 12/20/23 12:24 Freq: NEEDED Status: Active Protocol: Document 12/20/23 15:20 AB (Rec: 12/20/23 16:43 AB [id number]) Physical Therapy Current Condition Current Condition Evaluation Date 12/20/23 Treatment Diagnosis s/p R TEZ anterior; difficulty in walking Onset Date 12/19/23 M3 PT-IP Subjective Start: 12/20/23 12:24 Freq: NEEDED Status: Active Protocol: Document 12/20/23 15:20 AB (Rec: 12/20/23 16:43 AB [id number]) Subjective Physical Therapy Visit Type Type Initial Evaluation Visit Start Time 15:20 Visit Stop Time 16:30 Number of TARE MAN Visits 0 Physical Therapy Visit Comments Patient Comments agreeable to do PT Therapy Pain Assessment Pain When Pain Assessed At Rest Pain Present Pain Present Pain Reported Location Right Hip Intensity 8 Scale Used Numeric (0 - 10) Pain Management Techniques Apply Cold,Modification of Treatment,Re-positioning, Timing of Activity with Medications M4 PT-IP Mobility and Gait Start: 12/20/23 12:24 Freq: NEEDED Status: Active Protocol: Document 12/20/23 15:20 AB (Rec: 12/20/23 16:43 AB [id number]) PT-Bed Mobility Assessment Supine to Sit Supine to Sit Minimal Assistance PT-Transfer Assessment Sit to and From Stand Sit to and from Stand Standby Assistance,Contact Guard Assistance,1 Person Assistance,Use of Upper Extremities Equipment Transfer Assistive Device Gait Belt,Front Wheeled Walker Orthotic/Prosthetic Devices or Brace: No Transfers Transfer Destination Chair Transfer Technique ambulated Transfer Ability Level of Assist Standby Assistance,Contact Guard Assistance,1 Person Assistance,Use of Upper Extremities Comments Mobility Comments pt supine in bed and received IV bolus. pt on hold this morning due to low BP. BP monitored. obtained PLOF and home set up from pt this morning. reviewed hip precautions with pt and understood. BP in supine: 124 /70. pt completed supine to sit min A for RLE movement to EOB. pt able to sit on EOB SBA. no c/o dizziness but stated feeling cold but also warm at the same time and fuzzy thinking schafer. BP checked: 124/55. pt sat on EOB for ~ 3 min. BP rechecked: 122/57. pt completed sit to stand CGA and ambulated to the chair using FWW CGA. BP checked: 129/59. pt ambulated more in room ~ 20 ft using FWW SBA to CGA and rested sitting on EOB. pt agreed to do stairs. sit to stand from EOB SBA and ambulated in the hallway using FWW ~ 125 ft SBA. educated pt on stair climibing . completed up/down steps holding on to R rail with B hands mod A and max cues. c/o increase R hip pain. assisted pt back to her room. sit to stand from the w/c CGA and ambulated to the chair using FWW ~ 30 ft SBA. positioned pt on the chair. call light and table placed withiin reach. ice pack provided. BP at end of PT session: 122/67. pt stated that she does not feel she is ready to go home and also wants to do stair climbing again tomorrow. Gait Assessment Gait Gait Assistance Required: Standby Assistance,Contact Guard Assist Distance (Feet) 125 Able to Maintain Weight Bearing Status Yes During Gait Assistive Devices Assistive Device Gait Belt,Front Wheeled Walker Orthotic/Prosthetic Devices or Brace: No Gait Deviations General Gait Pattern Antalgic,Decreased Feet Clearance Factors Limiting Gait Function Factors Limiting Gait Function Decreased Activity Tolerance, Decreased Strength,Difficulty Following Directions,Limited Range of Motion,Pain,Poor Balance,Poor Safety Awareness Stair Climbing Assessment Evaluation Level of Assist On Stairs Moderate Assistance Devices Stair Climbing Assistive Devices Right Railing Technique/Endurance Stair Climbing Direction Ascend and Descend Stair Climbing Technique Step to Step Number of Steps Climbed 3 Query Text: Stair Climbing Set # Repetitions (reps) 1 PT-Balance Assessment Sitting Balance and Reactions Static Sitting Balance Ability Normal Dynamic Sitting Balance Ability Good Standing Balance and Reactions Static Standing Balance Ability Good Dynamic Standing Balance Ability Fair Device Used FWW M5 PT-IP Objective Assessments Start: 12/20/23 12:24 Freq: NEEDED Status: Active Protocol: Document 12/20/23 15:20 AB (Rec: 12/20/23 16:43 AB [id number]) Orientation Orientation/Cognition Level of Alertness Alert Orientation Name,Place,Situation Language Function Ability No Deficits Noted Safety Awareness Decreased Safety Awareness Memory Description No Deficits Noted Gross Range of Motion Lower Extremity ROM Assessment Within Functional Limits Strength Lower Extremity Strength Assessment Right Impaired Hip 3-/5 Knee 4-/5 Coordination Assessment Gross Coordination Gross Coordination WNL Sensation Assessment Sensation Gross Sensation WNL Muscle Tone Muscle Tone WNL Yes M6 PT-IP Treatment Start: 12/20/23 12:24 Freq: NEEDED Status: Active Protocol: Document 12/20/23 15:20 AB (Rec: 12/20/23 16:43 AB [id number]) Physical Therapy Treatment Exercises Exercises Heel Slides Education Education Provided Precautions,Weight Bearing Status,Safety M7 PT-IP Assessment and Plan Start: 12/20/23 12:24 Freq: NEEDED Status: Active Protocol: Document 12/20/23 15:20 AB (Rec: 12/20/23 16:43 AB [id number]) PT Summary Assessment and Plan Potential Rehabilitation Potential Good Status of Condition at Evaluation Evolving Summary Impairments Pain,ROM,Strength,Balance, Coordination,Sensation,Tone, Cognition,Bed Mobility, Transfers,Gait,Activity Tolerance Assessment Summary pt is a 58 y/o F s/p R TEZ anterior approach POD 1. pt with R hip anterior precautions and is WBAT. pt requiring SBA for transfers and ambulation using FWW but required mod A for stair climibing. pt plans to go home and has her son to assist her . will continue to assess progress. Goals Bed Mobility Goal Independent Transfer Goal Independent,Front Wheeled Walker Gait Goal Independent,Front Wheel Walker Gait Distance 250 Other Goals up/down 2 steps R rail mod I Days to Meet Goals 5 Frequency of Treatment Frequency Of Treatment Twice a Day Treatment Plan Physical Therapy Treatment Plan Bed Mobility Training,Transfer Training,Gait Training, Therapeutic Exercise,Balance Retraining,Post Op Education, Discharge Planning,Hot or Cold Pack,Neuromuscular Re-ed, Coordination Retraining,Manual Therapy Other Recommendations and Next Treatment stair climbing Focus Precautions Anterior Hip Precautions No Hip Extension,No Hip External Rotation Weight Bearing Status Weight Bearing Status Weight Bear as Tolerated Allowed Weight Bearing Amount (enter % RLE WBAT or #) (%) Recommendations To Nursing Amount of Assist Needed 1 Person Assist Discharge Recommendations PT Discharge Recommendations Home with Assistance, Outpatient PT Transportation Needs at Discharge Private Vehicle
[2023-12-20] MEDS: TRAMADOL 50 MG TABLET PO (15:54)
--- NOTE | 2023-12-20 18:57 | PC.NURSE ---
During OT therapy this am, pt became dizzy, diaphoretic, and minimally responsive while sitting in the chair. BP was found to be 80s/40s, HR in the 50s. This nurse was called to the room along with several other staff. Together we helped the patient into the jaylen and got her back into bed in trendelenburg position. LR @100 was restarted per APR, BP began to slowly improve, along with pt's symptoms. This nurse called the conference services coordinator PA with no response but left a message, also called the PA who had seen the pt this am, and the conference services coordinator orthopedic surgeon (left another message). With the fluids and positioning, pt condition continued to improve along with BP. call center recruiter PA was at the bedside within an hour and ordered a 500cc bolus. The patient was able to work with PT this afternoon without experiencing dizziness or orthostatic hypotension.
[2023-12-20 20:00] VITALS: BP 106/59; PULSE 68; TEMP 36.6; O2SAT 97
[2023-12-20] MEDS: GABAPENTIN 300 MG CAPSULE 900 MG PO (20:52)
[2023-12-21 01:20] VITALS: BP 94/51; PULSE 67; TEMP 36.2; O2SAT 93
[2023-12-21 04:30] VITALS: BP 101/58; PULSE 68; TEMP 36.4; O2SAT 96
--- NOTE | 2023-12-21 07:31 | P.PN_ITS ---
Subjective Subjective Date Patient Seen: 12/21/23 Time Patient Seen: 07:31 Interval history: Hip pain has been moderate. No shortness of breath or chest pain. She has some hypotension with physical therapy and stayed of the night to make sure she is stable. She does have her son who has an EMT at home to assist her. She notes the tramadol for her pain is working well. Otherwise without complaints. Exam Vital Signs (past 8 hours): - 12/21/23 01:20 12/21/23 04:30 Temperature 97.2 F L 97.5 F L Pulse Rate 67 68 Blood Pressure 94/51 L 101/58 L Pulse Oximetry 93 96 Oxygen Flow Rate 0 Oxygen Delivery Method Room Air Oxygen Flow Rate 0 Narrative Exam Narrative: 58-year-old female resting comfortably in bed in no apparent distress. Right hip dressing is clean, dry and intact. Neurovascular status is intact bilateral lower extremities. Const General: cooperative and comfortable Nutritional Appearance: average body habitus Orientation: alert Objective Labs 12/20/23 04:29 FOR[facility]LY [facility], [facility] Medical History Depression Anemia ADD (attention deficit disorder) Arthritis Osteoporosis Headache, migraine DJD (degenerative joint disease) Surgical History Delivery by section (2003) H/O nasal septoplasty (10/28/17) Status post Mohs surgery History of hysteroscopy (03/30/17) History of total left hip replacement (2020) History of appendectomy Social History household members: none Smoking Status: Former smoker alcohol intake: current Assessment & Plan Post-op Postoperative Procedures: Procedures Operation Date: 12/19/23 13:45 Actual Procedure Side Surgeon p Total Hip Arthroplasty/Anterior Approach Right Blayne Gann MD Postoperative day: 2 Postoperative status: marginal pain control Postoperative status narrative: Orthostatic hypotension when working with physical therapy, stabilizing Postoperative plan narrative: Mobilize with physical therapy, anterior hip precautions, weight-bearing as tolerated Aspirin 81 mg b.i.d. for DVT prophylaxis Prescription sent to her pharmacy for tramadol Apply ice right hip Follow up 2 weeks Discharge home today after physical therapy if safe for home environment.
[2023-12-21 08:00] VITALS: BP 114/62; PULSE 69; RESP 14; TEMP 36.8; O2SAT 98
[2023-12-21] MEDS: TRAMADOL 50 MG TABLET PO (08:22)
[2023-12-21] MEDS: CELECOXIB 200 MG CAPSULE PO (08:23)
[2023-12-21] MEDS: DOCUSATE 100 MG CAPSULE PO (08:23)
[2023-12-21] MEDS: ASPIRIN EC 81 MG TABLET PO (08:23)
--- NOTE | 2023-12-21 08:39 | PC.NURSE ---
Addendum entered by Renea Molina R.N. 12/21/23 14:04: 1346 Patient off unit in wheelchair, son accompanying patient. IV previously removed and bandaid applied. Addendum entered by Renea Molina R.N. 12/21/23 12:36: 1230 IV removed and bandaid applied. Patient with belongings. Discharge education provided and patient verbalized understanding. Education signed and scanned to chart. 0288 Patient ambulating halls with PT. Original Note: 729 Report received from nightshift RN. Patient able to [place]. Patient AAO x's 3. Pain to LLE dressing noted to left hip. Denies numbness and tingling. Call light within reach and bed in lowest position. 0800 PA liam Warren, at the bedside assessing patient. Patient plan to be discharged after PT. IV to be removed. Patient requesting Tramadol over oxycodone. PA aware. Pain medication administered.
--- NOTE | 2023-12-21 08:50 | PT.IPTN ---
Current Diagnoses Unilateral primary osteoarthritis, right hip (12/19/23) Surgery Performed Operation Date: 12/19/23 13:45 Actual Procedures p Total Hip Arthroplasty/Anterior Approach(Right) - Blayne aGnn MD Physical Therapy Treatment Note M2 PT-IP Current Condition Start: 12/20/23 12:24 Freq: NEEDED Status: Active Protocol: Document 12/20/23 15:20 AB (Rec: 12/20/23 16:43 AB [id number]) Physical Therapy Current Condition Current Condition Evaluation Date 12/20/23 Treatment Diagnosis s/p R TEZ anterior; difficulty in walking Onset Date 12/19/23 M3 PT-IP Subjective Start: 12/20/23 12:24 Freq: NEEDED Status: Active Protocol: Document 12/21/23 09:32 TS (Rec: 12/21/23 09:40 TS [id number]) Subjective Physical Therapy Visit Type Type Treatment Note Visit Start Time 08:50 Visit Stop Time 09:29 Number of SYSTEMS DEVELOPER Visits 1 Physical Therapy Visit Comments Patient Comments Pt found resting in bed, she is agreeable to PT. Therapy Pain Assessment Pain When Pain Assessed At Rest Pain Present Pain Present Pain Reported M4 PT-IP Mobility and Gait Start: 12/20/23 12:24 Freq: NEEDED Status: Active Protocol: Document 12/21/23 09:32 TS (Rec: 12/21/23 09:40 TS [id number]) PT-Bed Mobility Assessment Supine to Sit Supine to Sit Minimal Assistance Sit to Supine Sit to Supine Minimal Assistance Scooting Scooting to Edge of Bed Standby Assistance PT-Transfer Assessment Sit to and From Stand Sit to and from Stand Standby Assistance,1 Person Assistance,Use of Upper Extremities Equipment Transfer Assistive Device Gait Belt,Front Wheeled Walker Orthotic/Prosthetic Devices or Brace: No Comments Mobility Comments Supine to sit Amelia for RLE assistance. STS with FWW SBA. She ambulates to the restroom SBA. Pt performs own pericare. STS from toilet SBA with FWW. She ambualtes ~150 in [address] SBA. She performs steps modA with use of B handrails. Pt was brought back to the room in the w/c. Sit to supine into bed Amelia for RLE assistance. Pt reports feeling slighlty nauseous after stairs. Pt was left in bed, all needs met. Gait Assessment Gait Gait Assistance Required: Standby Assistance,Contact Guard Assist Distance (Feet) 160 Able to Maintain Weight Bearing Status Yes During Gait Assistive Devices Assistive Device Gait Belt,Front Wheeled Walker Orthotic/Prosthetic Devices or Brace: No Gait Deviations General Gait Pattern Antalgic,Decreased Feet Clearance Factors Limiting Gait Function Factors Limiting Gait Function Decreased Activity Tolerance, Decreased Strength,Difficulty Following Directions,Limited Range of Motion,Pain,Poor Balance,Poor Safety Awareness Stair Climbing Assessment Evaluation Level of Assist On Stairs Moderate Assistance Devices Stair Climbing Assistive Devices Left Railing,Right Railing Technique/Endurance Stair Climbing Direction Ascend and Descend Stair Climbing Technique Step to Step Number of Steps Climbed 3 Stair Climbing Set # Repetitions (reps) 1 PT-Balance Assessment Sitting Balance and Reactions Static Sitting Balance Ability Normal Dynamic Sitting Balance Ability Good Standing Balance and Reactions Static Standing Balance Ability Good Dynamic Standing Balance Ability Fair Device Used FWW M5 PT-IP Objective Assessments Start: 12/20/23 12:24 Freq: NEEDED Status: Active Protocol: Document 12/20/23 15:20 AB (Rec: 12/20/23 16:43 AB [id number]) Orientation Orientation/Cognition Level of Alertness Alert Orientation Name,Place,Situation Language Function Ability No Deficits Noted Safety Awareness Decreased Safety Awareness Memory Description No Deficits Noted Gross Range of Motion Lower Extremity ROM Assessment Within Functional Limits Strength Lower Extremity Strength Assessment Right Impaired Hip 3-/5 Knee 4-/5 Coordination Assessment Gross Coordination Gross Coordination WNL Sensation Assessment Sensation Gross Sensation WNL Muscle Tone Muscle Tone WNL Yes M6 PT-IP Treatment Start: 12/20/23 12:24 Freq: NEEDED Status: Active Protocol: Document 12/21/23 09:32 TS (Rec: 12/21/23 09:40 [id number]) Physical Therapy Treatment Education Education Provided Precautions,Weight Bearing Status,Safety M7 PT-IP Assessment and Plan Start: 12/20/23 12:24 Freq: NEEDED Status: Active Protocol: Document 12/21/23 09:32 TS (Rec: 12/21/23 09:40 TS [id number]) PT Summary Assessment and Plan Potential Rehabilitation Potential Good Summary Impairments Pain,ROM,Strength,Balance, Coordination,Sensation,Tone, Cognition,Bed Mobility, Transfers,Gait,Activity Tolerance Progress Towards Goals Progressing Toward Goals Assessment Summary Pt is making good progress with her mobility. She continues to ambulate long distances with use of FWW. She has some difficulty with stairs but did complete. She has good safety awareness with her mobility. PT is recommending home with assist and outpatient PT. Goals Bed Mobility Goal Independent Transfer Goal Independent,Front Wheeled Walker Gait Goal Independent,Front Wheel Walker Gait Distance 250 Other Goals up/down 2 steps R rail mod I Days to Meet Goals 5 Frequency of Treatment Frequency Of Treatment Twice a Day Treatment Plan Physical Therapy Treatment Plan Bed Mobility Training,Transfer Training,Gait Training, Therapeutic Exercise,Balance Retraining,Post Op Education, Discharge Planning,Hot or Cold Pack,Neuromuscular Re-ed, Coordination Retraining,Manual Therapy Precautions Anterior Hip Precautions No Hip Extension,No Hip External Rotation Weight Bearing Status Weight Bearing Status Weight Bear as Tolerated Allowed Weight Bearing Amount (enter % RLE WBAT or #) (%) Recommendations To Nursing Amount of Assist Needed 1 Person Assist Discharge Recommendations PT Discharge Recommendations Home with Assistance, Outpatient PT Transportation Needs at Discharge Private Vehicle
--- NOTE | 2023-12-21 11:49 | OT.IPNOTE ---
Pt being discharged today and able to finalize all OT needs, no charge.
== END 2023-12-21 13:46 | disposition home or self-care (01) ==
LOC: OR 12:09 → AC 12:09
PROVIDERS: PCP Family Medicine; Referring Provider Orthopaedic Surgery Adult Reconstructive Orthopaedic Surgery; Visit Provider Orthopaedic Surgery Adult Reconstructive Orthopaedic Surgery
PROC: (CPT 27130; principal; 2023-12-19 13:45)
DX: M16.11 Unilateral primary osteoarthritis, right hip (principal); M25.751 Osteophyte, right hip
CPT/HCPCS: 27130; 36415; 73502; 85014; 85018; 97116; 97162; 97165; 97530; 97535; C1776; J0690; J1100; J1171; J2250; J2405; J2704; J2765; J3010; J3410; J3490